=== PATIENT | male | born 1960 | race Hispanic/Latino ===

== ENCOUNTER 2016-09-22 20:06 | Emergency (ER) | payer SELFPAY ==
[~2016-09-22] VITALS: Ht 175.3 cm; Wt 135.0 kg
[2016-09-22] MEDS ORDERED: AMLODIPINE BESYL5 MG PO (20:53)
[2016-09-22] MEDS ORDERED: LISINOPRIL20 MG PO (20:54)
[2016-09-22] MEDS ORDERED: HYDROCHLOROT12.5 MG PO (20:54)
[2016-09-22 23:52] VITALS: BP 140/69
== END 2016-09-22 23:48 | disposition home or self-care (01) | DRG 607 ==
LOC: ED 20:06
DX: L73.9 Follicular disorder, unspecified (principal); L02.811 Cutaneous abscess of head [any part, except face]; B95.61 Methicillin susceptible Staphylococcus aureus infection as the cause of diseases classified elsewhere

== ENCOUNTER 2016-09-24 00:20 | Emergency (ER) | payer SELFPAY ==
[~2016-09-24] VITALS: Ht 175.3 cm; Wt 120.8 kg
[~2016-09-24 00:20] MED LIST: AMLODIPINE BESYL5 MG PO; HYDROCHLOROT12.5 MG PO; LISINOPRIL20 MG PO
[2016-09-24] MEDS ORDERED: MUPIROCIN2 % EX (01:50)
[2016-09-24] MEDS ORDERED: BACTRIM DS1 TAB PO (01:50)
[2016-09-24 02:14] VITALS: BP 127/88
== END 2016-09-24 02:14 | disposition home or self-care (01) | DRG 603 ==
LOC: ED 00:20
DX: L02.01 Cutaneous abscess of face (principal)

== ENCOUNTER 2017-03-21 18:30 | Emergency (ER) | payer SELFPAY ==
[~2017-03-21] VITALS: Ht 175.3 cm; Wt 110.0 kg
[~2017-03-21 18:30] MED LIST changes: +BACTRIM DS1 TAB PO; +MUPIROCIN2 % EX
[2017-03-21 19:24] VITALS: BP 138/65
== END 2017-03-21 19:33 | disposition home or self-care (01) | DRG 605 ==
LOC: ED 18:30
DX: S70.12XA Contusion of left thigh, initial encounter (principal); R22.42 Localized swelling, mass and lump, left lower limb; Z86.718 Personal history of other venous thrombosis and embolism; W01.198A Fall on same level from slipping, tripping and stumbling with subsequent striking against other object, initial encounter; Y93.89 Activity, other specified; Y92.9 Unspecified place or not applicable

== ENCOUNTER 2022-12-27 11:59 | Emergency (ER) | payer SELFPAY ==
[~2022-12-27] VITALS: Ht 175.3 cm; Wt 100.0 kg
[2022-12-27 14:06] VITALS: BP 116/68
== END 2022-12-27 14:16 | disposition home or self-care (01) | DRG 125 ==
LOC: ED 11:59
PROC: 08J0XZZ Inspection of Right Eye, External Approach (ICD-10-PCS; principal; 2022-12-27)
DX: T15.01XA Foreign body in cornea, right eye, initial encounter (principal); I10 Essential (primary) hypertension; E11.9 Type 2 diabetes mellitus without complications; X58.XXXA Exposure to other specified factors, initial encounter